=== PATIENT | male | born 1990 | race Two or more races ===

== ENCOUNTER 2016-12-10 16:37 | Emergency (ER) | payer OTHER ==
[2016-12-10 17:15] VITALS: BP 133/68
[2016-12-10 17:55] LABS: BILIRUBIN,URINE NEG (NEG); CLARITY,URINE HAZY; COLOR,URINE YELLOW; GLUCOSE,URINE NEG (NEG)
[2016-12-10 17:56] LABS: BACTERIA,URINE 0 /HPF (0-FEW); NITRITE,URINE NEG (NEG); RBC,URINE OCC /HPF (0-2); SQUAMOUS EPITHELIAL CELL,UR OCC /LPF; UROBILINOGEN,URINE 0.2 mg/dL (0.2 mg/dL)
[2016-12-10] MEDS ORDERED: PHEN-318 PO (18:07)
--- NOTE | 2016-12-10 18:08 | PHYS DOC ---
Past History Past Medical History: No Pertinent History Past Surgical History: No Surgical History Alcohol Use: None Drug Use: None Adult General Chief Complaint Chief Complaint: SEXUALLY TRANSMITTED DISEASE HPI HPI Patient is a 26 year old male who presents with complaint of dysuria and abnormal penile discharge. The patient is concerned he may have sexually transmitted infection. Patient states his symptoms have been present over the past 3-4 days. Patient states that he has pain every time that he urinates. Patient rates that as 6 out of 10. Patient has noticed a yellowish mucoid discharge. Patient does admit to unprotected sexual intercourse approximately one half weeks prior to onset of symptoms. Patient states that this was a sexual partner outside of his marriage. Patient has high suspicion that he may have a sexually transmitted infection and came to the emergency department for evaluation. Patient denies fever, nausea, vomiting, or abdominal pain. Review of Systems Review of Systems Constitutional: Denies fever or chills [] Eyes: Denies change in visual acuity, redness, or eye pain [] HENT: Denies nasal congestion or sore throat [] Respiratory: Denies cough or shortness of breath [] Cardiovascular: Denies chest pain or edema [] GI: Denies abdominal pain, nausea, vomiting, bloody stools or diarrhea [] : Dysuria, abnormal penile discharge [] Musculoskeletal: Denies back pain or joint pain [] Integument: Denies rash or skin lesions [] Neurologic: Denies headache, focal weakness or sensory changes [] Allergies Allergies Allergies Coded Allergies Type Severity Reaction Last Updated Verified Penicillins Allergy Intermediate 12/10/16 Yes Physical Exam Physical Exam Constitutional: Well developed, well nourished, no acute distress, non-toxic appearance. [] HENT: Normocephalic, atraumatic, bilateral external ears normal, oropharynx moist, no oral exudates, nose normal. [] Eyes: PERRLA, EOMI, conjunctiva normal, no discharge. [] Neck: Normal range of motion, no tenderness, supple, no stridor. [] Cardiovascular:Heart rate regular rhythm, no murmur [] Lungs & Thorax: Bilateral breath sounds clear to auscultation [] Abdomen: Bowel sounds normal, soft, no tenderness, no masses, no pulsatile masses. : Inflammatory changes at urethral meatus, visible purulent yellow discharge from urethral meatus, no testicular tenderness on exam [] Skin: Warm, dry, no erythema, no rash. [] Back: No tenderness, no CVA tenderness. [] Extremities: No tenderness, no cyanosis, no clubbing, ROM intact, no edema. [] Neurologic: Alert and oriented X 3, normal motor function, normal sensory function, no focal deficits noted. [] Current Patient Data Vital Signs Vital Signs Date Time Temp Pulse Resp B/P (MAP) Pulse Ox O2 Delivery O2 Flow Rate FiO2 12/10/16 17:15 98.7 56 16 99 Room Air Lab Results Laboratory Tests Test 12/10/16 17:20 Urine Collection Type Unknown Urine Color Yellow Urine Clarity Hazy Urine pH 6.0 Urine Specific [place] >=1.030 Urine Protein Neg (NEG-TRACE) Urine Glucose (UA) Neg mg/dL (NEG) Urine Ketones (Stick) Neg mg/dL (NEG) Urine Blood Trace (NEG) Urine Nitrite Neg (NEG) Urine Bilirubin Neg (NEG) Urine Urobilinogen Dipstick 0.2 mg/dL (0.2 mg/dL) Urine Leukocyte Esterase Small (NEG) Urine RBC Occ /HPF (0-2) Urine WBC 11-20 /HPF (0-4) Urine Squamous Epithelial Cells Occ /LPF Urine Bacteria 0 /HPF (0-FEW) Urine Mucus Slight /LPF EKG EKG Not performed [] Radiology/Procedures Radiology/Procedures Not performed [] Course & Med Decision Making Course & Med Decision Making Pertinent Labs and Imaging studies reviewed. (See chart for details) Patient was treated with Rocephin and azithromycin in the emergency department for empiric treatment of sexually transmitted infection. Explained to patient that cultures would take approximately 2-3 days for results to come back. Advised return to the emergency department for any worsening symptoms. Also recommended to abstain from any sexual intercourse until symptoms had fully resolved and to inform any sexual partners of possible infection and need for medical evaluation. Patient was understanding and in agreement with treatment plan. Dragon Disclaimer Dragon Disclaimer This chart was dictated in whole or in part using Voice Recognition software in a busy, high-work load, and often noisy Emergency Department environment. It may contain unintended and wholly unrecognized errors or omissions. Departure Departure: Impression: Primary Impression: Sexually transmitted disease (STD) Disposition: 01 HOME, SELF-CARE Condition: STABLE Referrals: PCP,UNKNOWN (PCP) Patient Instructions: Sexually Transmitted Disease Additional Instructions: Abstain from any sexual intercourse until your symptoms have completely resolved. Return to the emergency department for any worsening symptoms. Scripts Phenazopyridine Hcl (PYRIDIUM) 200 Mg Tablet 200 MG PO TID, #6 TAB Prov: ROSALINA CORREA MD 12/10/16 ROSALINA CORREA MD Dec 10, 2016 18:08
[2016-12-10] MEDS ORDERED: cefTRIAXone IM 250 MG VIAL IM ONE (18:30)
[2016-12-10] MEDS ORDERED: AZITHROMYCIN 250 MG TABLET. PO ONE (18:30)
== END 2016-12-10 18:25 | disposition home or self-care (01) ==
LOC: ER 16:37
DX: A64 Unspecified sexually transmitted disease (principal); Z88.0 Allergy status to penicillin
CPT/HCPCS: 81001; 87086; 96372; 99284; J0456; J0696

== ENCOUNTER 2019-05-06 00:37 | Emergency (ER) | payer OTHER ==
[~2019-05-06] VITALS: Ht 190.5 cm; Wt 99.8 kg
[~2019-05-06 00:37] MED LIST: PHEN-318 PO
[2019-05-06 00:47] VITALS: BP 147/79
--- NOTE | 2019-05-06 00:49 | PHYS DOC ---
Past History Past Medical History: No Pertinent History, STD, Other Past Medical History Hx. of Gonorrhea x 1, Chlamydia x 2. Past Surgical History: No Surgical History Alcohol Use: None Drug Use: None Adult General Chief Complaint Chief Complaint: SEXUALLY TRANSMITTED DISEASE ".. I thlink I roller picker a STD..".." Amy had a really wild night last ... now it feels like I got gonorrhea again.. It hurts bad to pee... 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 Patient has some very mild discharge from head of penis. Circumcised male. No adenopathy. Has had chlamydia 2 and gonorrhea 1. Patient had recent unprotected sex with suspect partner. Had 30 life times sexual partners that have been unprotected. Patient up-to- date with vaccinations. No recent travel. No recent overseas deployment. Patient has no history of immunosuppression. Review of Systems Review of Systems Constitutional: Denies fever or chills [] Eyes: Denies change in visual acuity, redness, or eye pain [] HENT: Denies nasal congestion or sore throat [] Respiratory: Denies cough or shortness of breath [] Cardiovascular: No additional information not addressed in HPI [] GI: Denies abdominal pain, nausea, vomiting, bloody stools or diarrhea [] : Complaints of dysuria and penile discharge Musculoskeletal: Denies back pain or joint pain [] Integument: Denies rash or skin lesions [] Neurologic: Denies headache, focal weakness or sensory changes [] Endocrine: Denies polyuria or polydipsia [] All other systems were reviewed and found to be within normal limits, except as documented in this note. Family History Family History Noncontributory Current Medications Current Medications See nursing for home meds Allergies Allergies Allergies Coded Allergies Type Severity Reaction Last Updated Verified Penicillins Allergy Intermediate 12/10/16 Yes Physical Exam Physical Exam Constitutional: Well developed, well nourished, moderate distress, non-toxic ap pearance. [] HENT: Normocephalic, atraumatic, bilateral external ears normal, oropharynx moist, no oral exudates, nose normal. [] Eyes: PERRLA, EOMI, conjunctiva normal, no discharge. [] Neck: Normal range of motion, no tenderness, supple, no stridor. [] Cardiovascular:Heart rate regular rhythm, no murmur [] Lungs & Thorax: Bilateral breath sounds clear to auscultation [] Abdomen: Bowel sounds normal, soft, no tenderness, no masses, no pulsatile masses. [] Circumcised male. Mild discharge from penis. Skin: Warm, dry, no erythema, no rash. [] Back: No tenderness, no CVA tenderness. [] Extremities: No tenderness, no cyanosis, no clubbing, ROM intact, no edema. [] Neurologic: Alert and oriented X 3, normal motor function, normal sensory function, no focal deficits noted. [] Psychologic: Affect anxious, judgement normal, mood normal. [] EKG EKG [] Radiology/Procedures Radiology/Procedures [] Course & Med Decision Making Course & Med Decision Making Pertinent Labs and Imaging studies reviewed. (See chart for details). Patient follow-up pending cultures. If positive would STD such partner must also be informed and treated. Patient to practice safe sex. Patient to take doxycycline 100 mg twice a day. Push fluids. Follow-up Amy. Return if any concerns. []Impression: 1. Dysuria -urethritis Dragon Disclaimer Dragon Disclaimer This electronic medical record was generated, in whole or in part, using a voice recognition dictation system. Departure Departure: Disposition: 01 HOME/RESIDENCE PRIOR TO ADM Condition: STABLE Referrals: PCP,UNKNOWN (PCP) Scripts Doxycycline Monohydrate (DOXYCYCLINE MONOHYDRATE) 75 Mg Capsule 1 CAP PO BID for Urethritis for 14 Days, #28 CAP 0 Refills Prov: BIBI SMITH MD 05/06/19 Fatuma Disclaimer This chart was dictated in whole or in part using Voice Recognition software in a busy, high-work load, and often noisy Emergency Department environment. It may contain unintended and wholly unrecognized errors or omissions. BIBI SMITH MD May 06, 2019 00:48
[2019-05-06] MEDS ORDERED: [UNRECOGNIZED DRUG - CODE] PO (01:01)
[2019-05-06] MEDS ORDERED: metroNIDAZOLE 250 MG TABLET ONE (01:08)
[2019-05-06 01:10] LABS: BARBITURATES NEG (NEG); BENZODIAZEPINES NEG (NEG); CANNABINOIDS NEG (NEG); COCAINE NEG (NEG); METHADONE NEG (NEG); OPIATES NEG (NEG); PHENCYCLIDINE NEG (NEG)
[2019-05-06 01:13] LABS: BACTERIA,URINE FEW /HPF (0-FEW); BILIRUBIN,URINE NEG (NEG); CLARITY,URINE HAZY; COLOR,URINE YELLOW; GLUCOSE,URINE NEG (NEG); NITRITE,URINE NEG (NEG); RBC,URINE OCC /HPF (0-2); SQUAMOUS EPITHELIAL CELL,UR OCC /LPF; UROBILINOGEN,URINE 0.2 mg/dL (0.2 mg/dL); WBC,URINE >40 /HPF (0-4)
[2019-05-06 01:16] LABS: AMPHETAMINE/METHAMPHETAMINE NEG (NEG)
[2019-05-06] MEDS ORDERED: ONDANSETRON ODT 4 MG TAB.RAPDIS PO ONE (01:30)
[2019-05-06] MEDS ORDERED: AZITHROMYCIN 250 MG TABLET. PO ONE (01:30)
[2019-05-06] MEDS ORDERED: cefTRIAXone IM 1 GM VIAL IM ONE (01:30)
[2019-05-06] MEDS ORDERED: metroNIDAZOLE 500 MG TABLET PO ONE (01:30)
== END 2019-05-06 01:35 | disposition home or self-care (01) ==
LOC: ER 00:37
DX: N34.2 Other urethritis (principal); Z88.0 Allergy status to penicillin
CPT/HCPCS: 36415; 80307; 81001; 86592; 86703; 87086; 87491; 87591; 96372; 99284; J0456; J0696; Q0162

== ENCOUNTER 2019-07-14 11:56 | Emergency (ER) | payer OTHER ==
[~2019-07-14] VITALS: Ht 190.5 cm; Wt 109.2 kg
[~2019-07-14 11:56] MED LIST changes: +[UNRECOGNIZED DRUG - CODE] PO
--- NOTE | 2019-07-14 12:26 | PHYS DOC ---
Past History Past Medical History: No Pertinent History, STD, Other Past Surgical History: Other Additional Past Surgical Histo: L SHOULDER SX Alcohol Use: Rarely Drug Use: None Adult General Chief Complaint Chief Complaint: FLU SYMPTOM [facility] HPI 29-year-old male presents with 2 day history of fever, body aches, and fatigue. The patient was feeling fine on . His symptoms began suddenly yesterday. He has not measured a fever, but has had some chills. He also like to be screening for chlamydia because he's had a tingling feeling in his testicles and increased urinary frequency. He denies any discharge from his penis. He really doesn't think he has an infection, but wants a check. Review of Systems Review of Systems Constitutional: Chills[] Eyes: Denies change in visual acuity, redness, or eye pain [] HENT: Sore throat [] Respiratory: Cough without shortness of breath [] Cardiovascular: No additional information not addressed in HPI [] GI: Denies abdominal pain, nausea, vomiting, bloody stools or diarrhea [] : Denies dysuria or hematuria [] Musculoskeletal: Denies back pain or joint pain [] Integument: Denies rash or skin lesions [] Neurologic: Headache. Denies focal weakness or sensory changes [] Endocrine: Denies polyuria or polydipsia [] All other systems were reviewed and found to be within normal limits, except as documented in this note. Allergies Allergies Allergies Coded Allergies Type Severity Reaction Last Updated Verified Penicillins Allergy Intermediate 12/10/16 Yes Physical Exam Physical Exam Constitutional: Well developed, well nourished, no acute distress, non-toxic appearance. [] HENT: Normocephalic, atraumatic, bilateral external ears normal, oropharynx moist, no oral exudates, nose normal. [] Eyes: PERRLA, EOMI, conjunctiva normal, no discharge. [] Neck: Normal range of motion, no tenderness, supple, no stridor. [] Cardiovascular:Heart rate regular rhythm, no murmur [] Lungs & Thorax: Bilateral breath sounds clear to auscultation [] Abdomen: Bowel sounds normal, soft, no tenderness, no masses, no pulsatile masses. [] Skin: Warm, dry, no erythema, no rash. [] Back: No tenderness, no CVA tenderness. [] Extremities: No tenderness, no cyanosis, no clubbing, ROM intact, no edema. [] Neurologic: Alert and oriented X 3, normal motor function, normal sensory function, no focal deficits noted. [] Psychologic: Affect normal, judgement normal, mood normal. [] EKG EKG [] Radiology/Procedures Radiology/Procedures [] Course & Med Decision Making Course & Med Decision Making Pertinent Labs and Imaging studies reviewed. (See chart for details) The patient is positive for influenza B. I will treat him with Tamiflu as he is within 48 hours of onset. He is stable for discharge at this time. [] Dragon Disclaimer Dragon Disclaimer This electronic medical record was generated, in whole or in part, using a voice recognition dictation system. Departure Departure: Impression: Primary Impression: Influenza B Disposition: HOME, SELF-CARE Condition: STABLE Referrals: PCP,NO (PCP) Patient Instructions: Influenza, Adult, [id number] Scripts Oseltamivir Phosphate (TAMIFLU) 75 Mg Capsule 1 CAP PO BID for influenza, #10 CAP Prov: BELTRAN BETANCUR DO 07/14/19 BELTRAN BETANCUR DO Jul 14, 2019 12:26
[2019-07-14 12:51] LABS: INFLUENZA A PATIENT NEGATIVE (NEGATIVE); INFLUENZA B PATIENT POSITIVE (NEGATIVE)
[2019-07-14] MEDS ORDERED: OSEL75CA PO (13:03)
[2019-07-14 14:00] VITALS: BP 121/71
[2019-07-14 14:01] LABS: BILIRUBIN,URINE NEG (NEG); CLARITY,URINE CLOUDY; COLOR,URINE YELLOW; NITRITE,URINE NEG (NEG); UROBILINOGEN,URINE 0.2 mg/dL (0.2 mg/dL)
[2019-07-14 14:02] LABS: GLUCOSE,URINE NEG (NEG)
== END 2019-07-14 14:00 | disposition home or self-care (01) ==
LOC: ER 11:56
DX: J10.1 Influenza due to other identified influenza virus with other respiratory manifestations (principal); R35.0 Frequency of micturition; Z88.0 Allergy status to penicillin
CPT/HCPCS: 36415; 81003; 87070; 87491; 87591; 87804; 87880; 99283